=== PATIENT | male | born 1970 | race African-American/Black ===

== ENCOUNTER 2016-07-07 13:00 | Emergency (ER) | payer MEDICAID ==
--- NOTE | 2016-07-07 13:27 | ER Document Report ---
ED Medical Screen (RME) - General Chief Complaint: High Blood Sugar Stated Complaint: BLOOD SUGAR PROBLEMS Time Seen by Provider: 07/07/16 13:23 Notes: Pt has been out of his insulin for two weeks. His blood sugar is high. Also has a sore on his left great toe that won't heal. Pt states that he just " feels bad". Denies N/V. c/o increased urinary frequency. TRAVEL OUTSIDE OF THE [place] IN LAST 30 DAYS: No - Related Data Allergies/Adverse Reactions: No Known Allergies Allergy (Verified 07/07/16 13:13) Past Medical History Renal/ Medical History: Denies: Hx Peritoneal Dialysis Physical Exam - Vital signs Vitals: Temp Pulse Resp BP Pulse Ox 97.9 F 89 18 125/76 97 07/07/16 13:17 07/07/16 13:17 07/07/16 13:17 07/07/16 13:17 07/07/16 13:17 Course - Vital Signs Vital signs: Temp Pulse Resp BP Pulse Ox 97.9 F 89 18 125/76 97 07/07/16 13:17 07/07/16 13:17 07/07/16 13:17 07/07/16 13:17 07/07/16 13:17
[2016-07-07] MEDS ORDERED: NORMAL SALINE 1000 ML 1,000 ML IV ONE (13:28)
[2016-07-07 14:16] LABS: APPEARANCE,URINE CLEAR; BILIRUBIN,URINE NEGATIVE (NEGATIVE); GLUCOSE, URINE >=500 mg/dL (NEGATIVE); KETONES,URINE NEGATIVE (NEGATIVE); LEUKOCYTE ESTERASE,URINE NEGATIVE (NEGATIVE); NITRITE,URINE NEGATIVE (NEGATIVE); PROTEIN,URINE NEGATIVE (NEGATIVE); URINE SPECIFIC GRAVITY 1.022; UROBILINOGEN,URINE NEGATIVE mg/dL (<2.0)
[2016-07-07 14:45] LABS: ABSOLUTE BASOPHILS # (AUTO) 0.1 10^3/uL (0.0-0.2); ABSOLUTE EOSINOPHILS # (AUTO) 0.1 10^3/uL (0.0-0.6); ABSOLUTE LYMPHOCYTES (AUTO) 1.7 10^3/uL (0.5-4.7); ABSOLUTE MONOCYTES (AUTO) 0.5 10^3/uL (0.1-1.4); ABSOLUTE NEUT (AUTO) 6.3 10^3/uL (1.7-8.2); BASOPHILS % (AUTO) 0.7 % (0-2); EOSINOPHILS % (AUTO) 0.6 % (0-6); HEMATOCRIT 45.2 % (37.9-51.0); HEMOGLOBIN 15.2 g/dL (13.5-17.0); HGB HCT DIFFERENCE 0.4; LYMPHOCYTES % (AUTO) 19.3 % (13-45); MEAN CORPUSCULAR HGB CONC 33.6 g/dL (32.0-36.0); MEAN CORPUSCULAR VOLUME 89 fl (80-97); RED BLOOD COUNT 5.06 10^6/uL (4.35-5.55); RED CELL DISTRIBUTION WIDTH 13.9 % (11.5-14.0); SEGMENTED NEUTROPHILS % (AUTO) 73.4 % (42-78); WHITE BLOOD COUNT 8.6 10^3/uL (4.0-10.5)
[2016-07-07 15:05] LABS: ALANINE AMINOTRANSFERASE 40 U/L (21-72); ALBUMIN 4.4 g/dL (3.5-5.0); ALKALINE PHOSPHATASE 136 U/L (38-126); ANION GAP 10 (5-19); ASPARTATE AMINO TRANSFERASE 17 U/L (17-59); BILIRUBIN,DIRECT 0.4 mg/dL (0.0-0.4); BILIRUBIN,TOTAL 0.8 mg/dL (0.2-1.3); BLOOD UREA NITROGEN 25 mg/dL (7-20); CALCIUM 9.9 mg/dL (8.4-10.2); CARBON DIOXIDE 28 mmol/L (22-30); CHLORIDE 96 mmol/L (98-107); CREATININE RESULT 1.23 mg/dL (0.52-1.25); LIPASE 56.8 U/L (23-300); POTASSIUM 5.1 mmol/L (3.6-5.0); SODIUM 133.9 mmol/L (137-145); TOTAL PROTEIN 7.6 g/dL (6.3-8.2)
[2016-07-07 15:15] LABS: GLUCOSE 618 mg/dL (75-110)
[2016-07-07] MEDS ORDERED: INSULIN REG, HUMAN 100 UNIT/ML 3 ML VIAL (PYX) SUBCUT ONE (15:26)
--- NOTE | 2016-07-07 17:58 | ER Document Report ---
ED General - General Chief Complaint: High Blood Sugar Stated Complaint: BLOOD SUGAR PROBLEMS Time Seen by Provider: 07/07/16 13:23 TRAVEL OUTSIDE OF THE [place] IN LAST 30 DAYS: No - HPI Patient complains to provider of: Elevated blood sugar Notes: Patient coming in for evaluation of elevated blood sugar. Patient states he is a diabetic type II and is currently on Lantus 20 units at nighttime. Patient states he does not have a primary care provider and has been without his insulin for approximately 1 week. Patient otherwise denies any abdominal pain nausea vomiting fevers chills - Related Data Allergies/Adverse Reactions: No Known Allergies Allergy (Verified 07/07/16 13:13) Past Medical History - Social History Smoking Status: Former Smoker Chew tobacco use (# tins/day): No Frequency of alcohol use: None Drug Abuse: None Family History: Reviewed & Not Pertinent Patient has suicidal ideation: No Patient has homicidal ideation: No Endocrine Medical History: Reports: Hx Diabetes Mellitus Type 2 Renal/ Medical History: Denies: Hx Peritoneal Dialysis Surgical Hx: Negative Review of Systems - Review of Systems Constitutional: Other - Elevated blood sugar EENT: No symptoms reported Cardiovascular: No symptoms reported Respiratory: No symptoms reported Gastrointestinal: No symptoms reported Genitourinary: No symptoms reported Male Genitourinary: No symptoms reported Musculoskeletal: No symptoms reported Skin: No symptoms reported Hematologic/Lymphatic: No symptoms reported Neurological/Psychological: No symptoms reported Physical Exam - Vital signs Vitals: Temp Pulse Resp BP Pulse Ox 97.9 F 89 18 125/76 97 07/07/16 13:17 07/07/16 13:17 07/07/16 13:17 07/07/16 13:17 07/07/16 13:17 Interpretation: Normal - General General appearance: Appears well, Alert - HEENT Head: Normocephalic, Atraumatic Eyes: Normal Pupils: PERRL - Respiratory Respiratory status: No respiratory distress Chest status: Nontender Breath sounds: Normal Chest palpation: Normal - Cardiovascular Rhythm: Regular Heart sounds: Normal auscultation Murmur: No - Abdominal Inspection: Normal Distension: No distension Bowel sounds: Normal Tenderness: Nontender Organomegaly: No organomegaly - Back Back: Normal, Nontender - Extremities General upper extremity: Normal inspection, Nontender, Normal color, Normal ROM , Normal temperature General lower extremity: Normal inspection, Nontender, Normal color, Normal ROM , Normal temperature, Normal weight bearing. No: Dontrell's sign - Neurological Neuro grossly intact: Yes Cognition: Normal Orientation: AAOx4 Toney Coma Scale Eye Opening: Spontaneous Toney Coma Scale Verbal: Oriented Jak Coma Scale Motor: Obeys Commands Toney Coma Scale Total: 15 Speech: Normal Motor strength normal: LUE, RUE, LLE, RLE Sensory: Normal - Psychological Associated symptoms: Normal affect, Normal mood - Skin Skin Temperature: Warm Skin Moisture: Dry Skin Color: Normal Course - Re-evaluation Re-evalutation: 07/07/16 19:17 Patient coming in for elevated blood sugars. Patient was referred to the ER neonatal social worker who was able to get the patient an appointment at the local [facility]. Patient will transition to [id number] but this is more affordable 10 units in the morning she is at night. Patient agrees with this plan patient did have a hemoglobin A1c performed which does show elevation patient was educated briefly about diabetes and diabetic control. Patient will be discharged - Vital Signs Vital signs: Temp Pulse Resp BP Pulse Ox 98.7 F 82 16 115/82 98 07/07/16 18:32 07/07/16 18:32 07/07/16 18:32 07/07/16 18:32 07/07/16 18:32 - Laboratory Result Diagrams: 07/07/16 14:27 07/07/16 14:27 Laboratory results interpreted by me: 07/07/16 07/07/16 07/07/16 13:08 13:47 14:27 Sodium 133.9 L Potassium 5.1 H Chloride 96 L BUN 25 H Glucose 618 H* POC Glucose 533 H* Hemoglobin A1c % Alkaline Phosphatase 136 H Urine Glucose (UA) >=500 H Urine Blood SMALL H 07/07/16 07/07/16 14:27 17:35 Sodium Potassium Chloride BUN Glucose POC Glucose 320 H Hemoglobin A1c % 11.5 H Alkaline Phosphatase Urine Glucose (UA) Urine Blood Discharge - Discharge Clinical Impression: Hyperglycemia Diabetes Qualifiers: Diabetes mellitus type: type 2 Diabetes mellitus complication status: with unspecified complications Diabetes mellitus detention insulin use: with detention use Qualified Code(s): E11.8 - Type 2 diabetes mellitus with unspecified complications Condition: Good Disposition: HOME, SELF-CARE Instructions: Diabetes ([facility]), Hyperglycemia ([facility]) Additional Instructions: It is very important that you follow-up with the clinic provided. Please continue to watch your diet. Insulin as prescribed Prescriptions: Insulin Aspart Protam & Aspart [Novolog Mix 70-30 Vial] 10 unit SQ BID #1 vial Forms: Return to Work
[2016-07-07 18:33] VITALS: BP 115/82
== END 2016-07-07 18:32 | disposition home or self-care (01) ==
LOC: ER 13:00
DX: E11.65 Type 2 diabetes mellitus with hyperglycemia (principal); T38.3X6A Underdosing of insulin and oral hypoglycemic [antidiabetic] drugs, initial encounter; Z91.14 Patient's other noncompliance with medication regimen; Z87.891 Personal history of nicotine dependence
CPT/HCPCS: 99283; 36415; 82962; 83690; 85025; 80053; 81001; 83036; J1815; J7030

== ENCOUNTER 2017-05-02 10:28 | Emergency (ER) | payer MEDICAID ==
[2017-05-02 10:33] VITALS: BP 123/101
[2017-05-02] MEDS ORDERED: KETOROLAC TROMETHAMINE INJ/PF 30 MG/1 ML SDV IM ONE (10:53)
--- NOTE | 2017-05-02 10:56 | ER Document Report ---
HPI - HPI Pain Level: 4 Notes: Patient is a 46-year-old male with a history of IDDM, well controlled, who presents to the ED complaining of left lateral neck pain and pain in his trapezius muscle 2-3 weeks. 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 Patient states that he has been using heat and [id number] meds with minimal relief. Patient states that the pain does not radiate. Pain is described as a muscle tightness/spasm. Patient denies any procedures or injections into his neck or back. He denies any previous history of spinal abscess. Denies any recent illness. Patient states that he is eating and drinking without any difficulties. He is urinating normally having normal bowel movements. Patient has not noticed any changes in strength. Denies any headache, fever, head injury, URI, sore throat, chest pain, palpitations, syncope, cough, shortness of breath, wheeze, dyspnea, abdominal pain, nausea/ vomiting/diarrhea, urinary retention, dysuria, hematuria, loss of control of bowel or bladder, numbness/tingling, saddle anesthesia, muscle paralysis/ weakness, or rash. - ROS Systems Reviewed and Negative: Yes All other systems reviewed and negative Past Medical History - Social History Smoking Status: Current Every Day Smoker Family History: Reviewed & Not Pertinent Endocrine Medical History: Reports: Hx Diabetes Mellitus Type 2 Renal/ Medical History: Denies: Hx Peritoneal Dialysis Vertical Provider Document - CONSTITUTIONAL Agree With Documented VS: Yes Notes: PHYSICAL EXAMINATION: GENERAL: Well-appearing, well-nourished and in no acute distress. A&Ox4. Answers questions appropriately. HEAD: Atraumatic, normocephalic. EYES: Pupils equal round and reactive to light, extraocular movements intact, sclera anicteric, conjunctiva are normal. ENT: Nares patent and without discharge. oropharynx clear without exudates. No tonsilar hypertrophy or erythema. Moist mucous membranes. NECK: Normal range of motion, supple without lymphadenopathy. No rigidity. No midline tenderness. Spurling negative. + tenderness and spasm to the lt trapezius muscle. LUNGS: Breath sounds clear to auscultation bilaterally and equal. No wheezes rales or rhonchi. HEART: Regular rate and rhythm without murmurs, rubs, gallops. ABDOMEN: Soft, nontender, nondistended abdomen. No guarding, no rebound. No masses appreciated. Normal bowel sounds present. No CVA tenderness bilaterally. No pulsatile mass Musculoskeletal: Lt shoulder: FROM to passive with LROM to active. Strength 5+/ 5. No deficits noted. No bony tenderness of extremities. N/V intact distal. Back: FROM to passive/active. Strength 5+/5. No vertebral point tenderness, stepoffs, or deformities. No other bony tenderness, erythema, swelling, or ecchymosis. SLR negative b/l. No foot drop Extremities: No cyanosis, clubbing, or edema b/l. Peripheral pulses 2+. Capillary refill less than 2 seconds. NEUROLOGICAL: Normal speech, normal gait. Normal sensory, motor exams. Reflexes 2+ b/l. PSYCH: Normal mood, normal affect. SKIN: Warm, Dry, normal turgor, no rashes or lesions noted. - INFECTION CONTROL TRAVEL OUTSIDE OF THE [place] IN LAST 30 DAYS: No - RESPIRATORY O2 Sat by Pulse Oximetry: 98 Course - Re-evaluation Re-evalutation: 05/02/17 11:00 Patient is an afebrile, well-hydrated, 46-year-old male who presents to the ED with right trapezius muscle strain/spasm. Vitals are acceptable. PE is otherwise unremarkable for any neurovascular compromise, obvious tendon/ ligament rupture, obvious fracture/dislocation, septic joint, disc herniation causing severe spinal stenosis, spinal abscess, sepsis, meningitis, or other systemic emergent condition at this time. Toradol given today. I will send him home with a prescription for naproxen and baclofen. Recommend conservative measures for symptoms. Recheck with your PCM in 3-5 days. Schedule an appoint with orthopedics for further evaluation and management. Return to the ED with any worsening/concerning symptoms otherwise as reviewed discharge. Patient is in agreement. - Vital Signs Vital signs: Temp Pulse Resp BP Pulse Ox 98.1 F 88 18 123/101 H 98 05/02/17 10:30 05/02/17 10:30 05/02/17 10:30 05/02/17 10:30 05/02/17 10:30 Discharge - Discharge Clinical Impression: Trapezius muscle spasm Condition: Stable Disposition: HOME, SELF-CARE Instructions: Muscle Relaxers ([facility]) Additional Instructions: Rest, Ice, Compression, Elevation Tylenol/ibuprofen as needed Light stretches daily Strength exercises as able Moist heat and massage may help F/u with your PCP in 3-5 days for a recheck Consider consult(s) with Orthopedics/physical therapy for ongoing/worsening symptoms Return to the ED with any worsening symptoms and/or development of fever, headache, chest pain, palpitations, syncope, shortness of breath, trouble breathing, abdominal pain, n/v/d, blood in stool/urine, loss of control of bowel /bladder, urinary retention, muscle weakness/paralysis, saddle anesthesia, numbness/tingling, or other worsening symptoms that are concerning to you. Prescriptions: Baclofen [Baclofen 10 mg Tablet] 5 - 10 mg PO BID PRN #10 tablet PRN Reason: Naproxen 500 mg PO BID PRN #30 tablet PRN Reason: Forms: Elevated Blood Pressure, Smoking Cessation Education Referrals: [facility] [Provider Group] - Follow up as needed
== END 2017-05-02 11:23 | disposition home or self-care (01) ==
LOC: ER 10:28
DX: S29.012A Strain of muscle and tendon of back wall of thorax, initial encounter (principal); M62.830 Muscle spasm of back; M54.2 Cervicalgia; X50.0XXA Overexertion from strenuous movement or load, initial encounter; Y99.0 Civilian activity done for income or pay; E11.9 Type 2 diabetes mellitus without complications; Z79.4 Long term (current) use of insulin; F17.200 Nicotine dependence, unspecified, uncomplicated
CPT/HCPCS: 99283; 96372; J1885

== ENCOUNTER 2017-06-06 12:18 | Emergency (ER) | payer MEDICAID ==
--- NOTE | 2017-06-06 14:13 | ER Document Report ---
ED Skin Rash/Insect Bite/Abscs - General Chief Complaint: Abscess Stated Complaint: POSSIBLE ABSCESS Time Seen by Provider: 06/06/17 14:12 Notes: The patient is a 46-year-old male who presents with several months of right lateral thigh swelling. His abscess or cyst has drained multiple times, but he is unable to drain it this time despite using warm compresses. This painful when he places his pants on. He denies fevers, numbness, tingling or drainage. TRAVEL OUTSIDE OF THE [place] IN LAST 30 DAYS: No - Related Data Allergies/Adverse Reactions: No Known Allergies Allergy (Verified 05/02/17 10:28) Past Medical History - General Information source: Patient - Social History Smoking Status: Current Every Day Smoker Frequency of alcohol use: None Drug Abuse: None Family History: Reviewed & Not Pertinent Patient has suicidal ideation: No Patient has homicidal ideation: No Endocrine Medical History: Reports: Hx Diabetes Mellitus Type 2 Renal/ Medical History: Denies: Hx Peritoneal Dialysis Review of Systems - Review of Systems Notes: REVIEW OF SYSTEMS: CONSTITUTIONAL: -fevers, -chills EENT: -eye pain, -difficulty swallowing, -nasal congestion CARDIOVASCULAR: -chest pain, -syncope. RESPIRATORY: -cough, -SOB GASTROINTESTINAL: -abdominal pain, -nausea, -vomiting, -diarrhea GENITOURINARY: -dysuria, -hematuria MUSCULOSKELETAL: -back pain, -neck pain SKIN: +cyst over right lateral thigh HEMATOLOGIC: -easy bruising or bleeding. LYMPHATIC: -swollen, enlarged glands. NEUROLOGICAL: -altered mental status or loss of consciousness, -headache, - neurologic symptoms PSYCHIATRIC: -anxiety, -depression. ALL OTHER SYSTEMS REVIEWED AND NEGATIVE. Physical Exam - Vital signs Vitals: Temp Pulse Resp BP Pulse Ox 98.0 F 86 15 116/70 98 06/06/17 12:21 06/06/17 12:21 06/06/17 12:21 06/06/17 12:21 06/06/17 12:21 - Notes Notes: PHYSICAL EXAMINATION: GENERAL: Well-appearing, well-nourished and in no acute distress. HEAD: Atraumatic, normocephalic. EYES: Pupils equal round and reactive to light, extraocular movements intact, sclera anicteric, conjunctiva are normal. ENT: nares patent, oropharynx clear without exudates. Moist mucous membranes. NECK: Normal range of motion, supple without lymphadenopathy EXTREMITIES: 5 cm fluctuant cyst over right lateral thigh, no surrounding erythema, normal range of motion, no pitting or edema. No cyanosis. NEUROLOGICAL: Cranial nerves grossly intact. Normal speech, normal gait. Normal sensory and motor exams. PSYCH: Normal mood, normal affect. Course - Re-evaluation Re-evalutation: Patient's right thigh abscess was incised and drained with a large amount of purulent drainage. The wound was packed and will discharge patient with Bactrim due to the size of the wound. He will return in 48 hours for dressing change and recheck of his symptoms. Given very strict return precautions and he understands. - Vital Signs Vital signs: Temp Pulse Resp BP Pulse Ox 98.0 F 86 15 116/70 98 06/06/17 12:21 06/06/17 12:21 06/06/17 12:21 06/06/17 12:21 06/06/17 12:21 Procedures - Incision and Drainage Right Lateral Thigh Time completed: 15:04 Type: Simple, Single Anesthetic type: 1% Lidocaine w/epi mL's of anesthetic: 10 Blade size: 11 I&D procedure: Betadine prep applied, Iodoform packing placed Incision Method: Incision made by scalpel Amount/type of drainage: ~15 mL purulent drainage Discharge - Discharge Clinical Impression: Abscess Condition: Stable Disposition: HOME, SELF-CARE Additional Instructions: ABSCESS: You have an abscess (boil). This a pus-forming infection, usually due to staph. Some boils may be left to drain on their own, but most require lancing. From the time the tender lump first appears, it may be three or four days before the abscess is ready to sanju. Local heat and rest help at this stage of treatment. An antibiotic may prevent spread of the infection. Once the abscess is opened, packing may be placed into it. This is done so pus is not sealed inside by premature closure of the cavity. The packing will be removed at your follow-up visit or you may be advised to remove it yourself at home. Sometimes this packing must be replaced a few times during healing. The wound will heal with surprisingly little scar. Depending on the size and location of an abscess, healing can take one to four weeks. You may shower and wash the area around the incision site two or three times a day. Antibiotics may be prescribed, but are usually not necessary after an abscess has been drained. If you develop fever, chills, worsening pain, or increasing swelling in the area, call the doctor or return immediately. POST INCISION AND DRAINAGE: You have had an incision made to allow drainage of an abscess. The incision must remain open so that pus and debris can drain from the wound. If the abscess cavity is large, packing is placed. This keeps the tissues from collapsing and trapping pus inside, while the body shrinks the cavity. The packing may need to be replaced every day or two. The physician will instruct you on the packing. Keep a bulky dressing over the area. Replace it if it becomes saturated with blood or pus. Do not disturb the packing (if present). You may shower and cleanse the area with gentle soap and warm water two or three times a day. Local warmth may be soothing, and may promote faster healing. Return if you develop high fever or chills, or if you note spreading redness, increasing swelling, or increasing tenderness. MRSA CELLULITIS: You have an infection of your skin and underlying soft tissues called cellulitis. This is due to bacteria, which can enter through any break in the skin, or even through an irritated hair follicle. Untreated, cellulitis will usually worsen and may form an abscess which requires draining. Although many bacterial organisms can cause cellulitis and abscess formations, the most likely bacteria is Methicillin-Resistant Staph Aureus, or MRSA for short. Antibiotics are required. Usually, warm packs or warm soaks, and elevation of the infected area are recommended. You should start getting better within 24 to 36 hours. Most infections respond quickly to the right medication. Follow-up care is important, however, to check for abscess (boil) formation, unsuspected foreign body, or resistant infection. If you develop fever, chills, or if the area of infection is becoming rapidly more swollen or painful, call the doctor at once. TRIMETHOPRIM-SULFA: You have been given a prescription for trimethoprim-sulfa (TMS, Septra, Bactrim). This is a combination antibiotic of the sulfa class, often used for urinary tract infections, middle ear infections, bronchitis, shigella intestinal infection, and Pneumocystis pneumonia. TMS is usually well-tolerated. Occasional side effects include nausea and decreased appetite. Septra is not recommended for infants less than two months of age. Do not take this medication if you have experienced severe side effects or allergy to sulfa medicine. You should stop this medicine at once and contact your physician if you develop any rash, joint pain, shortness of breath, bruising, or jaundice ( yellow color in the skin), or if you develop any other new or unusual symptoms. FOLLOW-UP CARE: Most simple abscesses will not require a follow up visit. If you had packing placed in the abscess, remove it as instructed by the physician. If you have been referred to a physician for follow-up care, call the physicians office for an appointment as you were instructed or within the next two days. If you experience worsening or a significant change in your symptoms, return to the Emergency Department at any time for re-evaluation. Prescriptions: Sulfamethoxazole/Trimethoprim [Bactrim Ds Tablet] 1 each PO BID 10 Days tablet Referrals: [facility] [Outside] - Follow up as needed
[2017-06-06] MEDS ORDERED: IBUPROFEN 600 MG TABLET PO ONE (14:20)
[2017-06-06] MEDS ORDERED: HYDROCODONE/ACETAMINOPHEN 5-325 MG TABLET PO ONE (14:20)
[2017-06-06] MEDS ORDERED: LIDOCAINE 1%/EPINEPHRINE INJ 20 ML VIAL INJ ONE (14:21)
[2017-06-06] MEDS ORDERED: SULFAMETHOXAZOLE/TRIMETHOPRIM 800-160 MG TABLET PO ONE (14:59)
[2017-06-06 15:24] VITALS: BP 127/75
== END 2017-06-06 15:23 | disposition home or self-care (01) ==
LOC: ER 12:18
DX: L02.415 Cutaneous abscess of right lower limb (principal); E11.9 Type 2 diabetes mellitus without complications; F17.200 Nicotine dependence, unspecified, uncomplicated
CPT/HCPCS: 99283; 10060; J3490 ×3

== ENCOUNTER 2017-06-08 12:09 | Emergency (ER) | payer MEDICAID ==
[2017-06-08] MEDS ORDERED: SULFAMETHOXAZOLE/TRIMETHOPRIM 800-160 MG TABLET PO ONE (13:23)
--- NOTE | 2017-06-08 13:29 | ER Document Report ---
ED Wound - General Chief Complaint: Wound Recheck Stated Complaint: WOUND CHECK Time Seen by Provider: 06/08/17 13:16 Mode of Arrival: Ambulatory Information source: Patient TRAVEL OUTSIDE OF THE [place] IN LAST 30 DAYS: No - HPI Patient complains to provider of: Other - wound check Notes: Patient is here with complaints of needing his abscess recheck. He had an abscess to the right thigh that was I&D 2 days ago. He was placed on Bactrim. He was instructed to return today for recheck. Patient states that the wound seems to be healing better. He denies any fevers. He denies any nausea, vomiting, diarrhea. No numbness, tingling, weakness. The patient has a history of diabetes. He has not filled his antibiotics, he states that he does not have any money at this time. No other rashes. No difficulty breathing or swallowing. No abdominal pain. No nausea vomiting diarrhea. No other complaints. - Related Data Allergies/Adverse Reactions: No Known Allergies Allergy (Verified 06/08/17 12:10) Past Medical History - Social History Smoking Status: Current Every Day Smoker Frequency of alcohol use: None Drug Abuse: None Family History: Reviewed & Not Pertinent Patient has suicidal ideation: No Patient has homicidal ideation: No Endocrine Medical History: Reports: Hx Diabetes Mellitus Type 2 Renal/ Medical History: Denies: Hx Peritoneal Dialysis Review of Systems - Review of Systems -: Yes All other systems reviewed and negative Physical Exam - Vital signs Vitals: Temp Pulse Resp BP Pulse Ox 97.7 F 84 16 108/72 99 06/08/17 12:17 06/08/17 12:17 06/08/17 12:17 06/08/17 12:17 06/08/17 12:17 - Notes Notes: GENERAL: alert, cooperative, nontoxic, no distress. HEAD: normocephalic, atraumatic EYES: conjunctiva pink without discharge, no external redness or swelling. EARS: no external swelling, no external redness NOSE: atraumatic, no external swelling MOUTH/THROAT: mucous membranes moist and pink NECK: soft, supple, full range of motion, no meningismus. CHEST: no distress, lungs clear and equal throughout. No wheezing, rales, rhonchi. CARDIAC: regular rate and rhythm, no murmur, normal capillary refill, normal pulses. BACK: full range of motion, no CVA tenderness. EXTREMITIES: full range of motion of all extremities. No redness, no swelling. NEURO: alert and oriented 3, no focal deficits, full range of motion of all extremities. PYSCH: appropriate mood, affect. Patient is cooperative. SKIN: pink, warm, dry, no rash. Healing abscess to the right lateral thigh. Packing in place. No surrounding erythema. Minimal tenderness to palpation. Packing was removed. Wound was cleaned and was repacked and a sterile dressing was applied. Course - Re-evaluation Re-evalutation: 06/08/17 13:27 Patient is nontoxic appearing with stable vitals. He is here 2 days ago for an abscess of the right lateral thigh which she had and I be performed.. The wound appears to be healing as expected. There is no signs of worsening infection. No significant surrounding cellulitis. Wound packing was removed. The wound was cleaned and repacked and a sterile dressing was applied. The patient was given a dose of Bactrim here in the emergency department. He was urged to fill his Bactrim and start taking that twice a day as prescribed at his last visit. He is instructed to apply warm compresses to sore area. He was instructed to return in 2 days for recheck, return sooner for worsening pain , fever, redness, any further concerns. The patient's emergency department workup and current diagnosis were explained to the patient and or family. Follow-up instructions were provided. Medications if prescribed were discussed. Instructions for when to return to the emergency department including specific worrisome symptoms were discussed with the patient and/or family. - Vital Signs Vital signs: Temp Pulse Resp BP Pulse Ox 97.7 F 84 16 108/72 99 06/08/17 12:17 06/08/17 12:17 06/08/17 12:17 06/08/17 12:17 06/08/17 12:17 Discharge - Discharge Clinical Impression: Abscess re-check Condition: Stable Disposition: HOME, SELF-CARE Instructions: Abscess ([facility]), Family Physicians / Practices, Post Incision and Drainage Additional Instructions: Take the Bactrim you were given at her last visit as prescribed. Keep wound clean and dry. Apply warm compresses to sore area. Follow-up in 2 days to have the packing removed and have the wound rechecked. Follow-up sooner for worsening pain, fever, redness, drainage, numbness, tingling, weakness, any further concerns. Forms: Smoking Cessation Education Referrals: [facility] [Provider Group] - Follow up as needed
[2017-06-08 14:15] VITALS: BP 115/77
== END 2017-06-08 14:15 | disposition home or self-care (01) ==
LOC: ER 12:09
DX: L02.415 Cutaneous abscess of right lower limb (principal); F17.200 Nicotine dependence, unspecified, uncomplicated; E11.9 Type 2 diabetes mellitus without complications
CPT/HCPCS: 99282; J3490

== ENCOUNTER 2017-06-15 13:02 | Emergency (ER) | payer MEDICAID ==
--- NOTE | 2017-06-15 13:10 | ER Document Report ---
HPI - HPI Patient complains to provider of: abscess recheck right thigh Quality of pain: Throbbing Pain Level: 2 Context: 46-year-old male had a right lateral thigh abscess I&D done on June 06 and he is concerned that there is still packing in it and he wanted me to see if there was packing in it. Associated Symptoms: None Exacerbated by: Denies Relieved by: Denies - ROS ROS below otherwise negative: Yes Systems Reviewed and Negative: Yes All other systems reviewed and negative Past Medical History - General Information source: Patient - Social History Smoking Status: Unknown if Ever Smoked Frequency of alcohol use: None Drug Abuse: None Lives with: Family Family History: Reviewed & Not Pertinent Endocrine Medical History: Reports: Hx Diabetes Mellitus Type 2 Renal/ Medical History: Denies: Hx Peritoneal Dialysis Surgical Hx: Negative Vertical Provider Document - CONSTITUTIONAL Agree With Documented VS: Yes Exam Limitations: No Limitations General Appearance: No Apparent Distress - INFECTION CONTROL TRAVEL OUTSIDE OF THE [place] IN LAST 30 DAYS: No - DERM Integumentary: Abscess - some white,yellow devitalized tissue/exudate removed with ricky's, healthy skin base of wound. no packing Course - Vital Signs Vital signs: Temp Pulse Resp BP Pulse Ox 99.1 F 81 17 125/84 97 06/15/17 13:06 06/15/17 13:06 06/15/17 13:06 06/15/17 13:06 06/15/17 13:06 Discharge - Discharge Clinical Impression: Wound check, abscess Condition: Good Disposition: HOME, SELF-CARE Instructions: Dressing Instructions for Open Wounds ([facility]) Additional Instructions: dry dressing do not use hydrogen peroxide shower using soap and water to er any problems
[2017-06-15 13:35] VITALS: BP 117/86
== END 2017-06-15 13:37 | disposition home or self-care (01) ==
LOC: ER 13:02
DX: Z48.817 Encounter for surgical aftercare following surgery on the skin and subcutaneous tissue (principal); L02.415 Cutaneous abscess of right lower limb; E11.9 Type 2 diabetes mellitus without complications
CPT/HCPCS: 99282

== ENCOUNTER 2019-01-24 08:32 | Emergency (ER) | payer SELFPAY ==
[2019-01-24] MEDS ORDERED: LIDOCAINE 1.5%/EPINEPHRINE INJ-PF 30 ML SDV INJ ONE (09:53)
[2019-01-24] MEDS ORDERED: LIDOCAINE 1%/EPINEPHRINE INJ 20 ML VIAL ONE (10:00)
[2019-01-24] MEDS ORDERED: LIDOCAINE 1%/EPINEPHRINE INJ 20 ML VIAL INJ ONE (10:02)
--- NOTE | 2019-01-24 10:08 | ER Document Report ---
ED General - General Chief Complaint: Toothache Stated Complaint: POSSIBLE ABSCESS Time Seen by Provider: 01/24/19 09:06 Mode of Arrival: Ambulatory Information source: Patient TRAVEL OUTSIDE OF THE [place] IN LAST 30 DAYS: No - HPI Notes: Patient presents with left-sided jaw and tooth pain. He has had this for approximate 4 days he states. It is severe and constant. It is worse with any type of movement or touching of the area. It is better when left alone. It is severe and sharp. He states he is also noticed swelling adjacent to the lower molar. No fevers vomiting or rashes. - Related Data Allergies/Adverse Reactions: No Known Allergies Allergy (Verified 01/24/19 09:00) Past Medical History - General Information source: Patient - Social History Smoking Status: Current Some Day Smoker Chew tobacco use (# tins/day): No Frequency of alcohol use: None Drug Abuse: Marijuana Family History: Reviewed & Not Pertinent Patient has suicidal ideation: No Patient has homicidal ideation: No Endocrine Medical History: Reports: Hx Diabetes Mellitus Type 2 Renal/ Medical History: Denies: Hx Peritoneal Dialysis Review of Systems - Review of Systems Constitutional: denies: Chills, Fever Cardiovascular: denies: Chest pain, Palpitations Respiratory: denies: Cough, Short of breath -: Yes All other systems reviewed and negative Physical Exam - Vital signs Vitals: Temp Pulse Resp BP Pulse Ox 98.4 F 87 14 139/86 H 99 01/24/19 08:39 01/24/19 08:39 01/24/19 08:39 01/24/19 08:39 01/24/19 08:39 Interpretation: Normal - General General appearance: Appears well, Alert - HEENT Head: Normocephalic, Atraumatic Eyes: Normal Pupils: PERRL Mouth/Lips: Other - Patient has significant tenderness and swelling with an obvious abscess in the gumline adjacent to tooth #19. Patient has poor dent ition. - Respiratory Respiratory status: No respiratory distress Chest status: Nontender Breath sounds: Normal Chest palpation: Normal - Cardiovascular Rhythm: Regular Heart sounds: Normal auscultation Murmur: No - Abdominal Inspection: Normal Distension: No distension Bowel sounds: Normal Tenderness: Nontender Organomegaly: No organomegaly - Back Back: Normal, Nontender - Extremities General upper extremity: Normal inspection, Nontender, Normal color, Normal ROM, Normal temperature General lower extremity: Normal inspection, Nontender, Normal color, Normal ROM, Normal temperature, Normal weight bearing. No: Dontrell's sign - Neurological Neuro grossly intact: Yes Cognition: Normal Orientation: AAOx4 Jak Coma Scale Eye Opening: Spontaneous [place] Coma Scale Verbal: Oriented Jak Coma Scale Motor: Obeys Commands [place] Coma Scale Total: 15 Speech: Normal Motor strength normal: LUE, RUE, LLE, RLE Sensory: Normal - Psychological Associated symptoms: Normal affect, Normal mood - Skin Skin Temperature: Warm Skin Moisture: Dry Skin Color: Normal Course - Re-evaluation Re-evalutation: 01/24/19 10:11 Patient had an obvious abscess of the left gumline adjacent to tooth #18. This was drained with an 11 blade scalpel. Significant pus was drained from the site. Patient tolerated that well. I have informed the patient that for complete resolution he will need to see a dentist to have extraction of the tooth. I stressed to him that this most likely will not get better without extraction of the tooth and that it is very important that he sees a dentist. I have given the patient antibiotics and pain medicine in the meantime. I have informed him that he may return here if he is unable to see a dentist. - Vital Signs Vital signs: Temp Pulse Resp BP Pulse Ox 98.4 F 87 14 139/86 H 99 01/24/19 09:00 01/24/19 08:39 01/24/19 09:00 01/24/19 08:39 01/24/19 09:00 Procedures - Incision and Drainage Face Time completed: 10:00 Type: Simple Anesthetic type: 1% Lidocaine w/epi mL's of anesthetic: 2 Blade size: 11 Incision Method: Incision made by scalpel Amount/type of drainage: pus/blood, moderate Notes: 01/24/19 10:13 abscess was in gum adjacent to tooth #19 Mouth/Teeth picture: 1 - abscess Discharge - Discharge Clinical Impression: Tooth abscess Condition: Stable Disposition: HOME, SELF-CARE Instructions: Oral Narcotic Medication ([facility]), Toothache ([facility]), Post Incision and Drainage, Penicillin V K ([facility]) Additional Instructions: Please go to a dentist or dental emergency center as soon as possible to have an evaluation of your dental abscess. Prescriptions: Penicillin V Potassium [Penicillin Vk 500 mg Tablet] 500 mg PO BID #20 tablet Oxycodone HCl/Acetaminophen [Percocet 5-325 mg Tablet] 1 - 2 tab PO Q4H PRN #15 tablet PRN Reason: Forms: Return to Work
[2019-01-24 10:24] VITALS: BP 130/88
== END 2019-01-24 10:24 | disposition home or self-care (01) ==
LOC: ER 08:32
PROC: 0HQ1XZZ Repair Face Skin, External Approach (ICD-10-PCS; principal; 2019-01-24)
DX: K04.7 Periapical abscess without sinus (principal); K08.89 Other specified disorders of teeth and supporting structures; F17.200 Nicotine dependence, unspecified, uncomplicated; E11.9 Type 2 diabetes mellitus without complications
CPT/HCPCS: 99282; 12011; J3490